=== PATIENT | male | born 1980 | race Two or more races ===

== ENCOUNTER 2023-12-19 16:33 | Emergency (ER) | payer SELFPAY ==
[~2023-12-19] VITALS: Ht 170.2 cm; Wt 80.7 kg
[2023-12-19 17:06] VITALS: BP 114/73; PULSE 110; RESP 16; TEMP 100.8; O2SAT 100
== END 2023-12-19 19:30 | disposition home or self-care (01) ==
LOC: ER 16:33
DX: R50.9 Fever, unspecified (principal); J06.9 Acute upper respiratory infection, unspecified
CPT/HCPCS: 71045; 99283